=== PATIENT | male | born 1985 | race Caucasian/White ===

== ENCOUNTER → 2018-02-11 | Outpatient (CLI) | payer OTHER ==
[~2018-02-11] MED LIST: BUSP10 PO; Bactrim 400-801 EACH PO; CLIN150 PO; CLOBETTC TP; CLON.1; CLON.2; CYCL10 PO; Cipro500 MG PO; HYDACE5 PO; HYDMOR2 PO; Multi-Day Vita1 EACH PO; OXYC5 PO; PANT20; PANT40; PARO10; PARO20 PO; PARO25; PRILOSEC; SULTRIDS PO; TOPI25; TRAM50 PO; Vibramycin100 MG PO
[2018-02-11 10:48] LABS: U Barbituate Screen Not Detected; U Benzodiazapine Screen Not Detected; U Cannabinoids Screen DETECTED; U Cocaine Screen Not Detected; U Methadone Screen DETECTED; U Methamphetamine Screen Not Detected; U Opiates Screen Not Detected; U Phencyclidine Screen Not Detected
[2018-02-11 10:49] LABS: U Buprenorphine Screen Not Detected; U Oxycodone Screen Not Detected; U Propoxyphene Screen Not Detected
[2018-02-11 10:52] LABS: U Amphetamine Screen Not Detected
== END ==
LOC: LAB SHORT 08:20 → LAB 08:20
PROVIDERS: Psychiatry & Neurology Psychiatry
DX: Z51.81 Encounter for therapeutic drug level monitoring (principal); Z79.899 Other long term (current) drug therapy

== ENCOUNTER 2018-07-02 18:47 | Emergency (ER) | payer OTHER ==
[~2018-07-02] VITALS: Ht 170.2 cm; Wt 88.5 kg
[2018-07-02] MEDS ORDERED: METH40 PO (18:57)
== END 2018-07-02 19:56 | disposition home or self-care (01) ==
LOC: ER 18:47
DX: S61.412A Laceration without foreign body of left hand, initial encounter (principal); W26.0XXA Contact with knife, initial encounter; Z88.1 Allergy status to other antibiotic agents; Z88.8 Allergy status to other drugs, medicaments and biological substances; Z79.899 Other long term (current) drug therapy; F17.210 Nicotine dependence, cigarettes, uncomplicated
CPT/HCPCS: 12002; 99282-25

== ENCOUNTER 2019-05-18 17:42 | Emergency (ER) | payer OTHER ==
[~2019-05-18] VITALS: Ht 170.2 cm; Wt 93.0 kg
[~2019-05-18 17:42] MED LIST changes: +METH40 PO
== END 2019-05-18 19:54 | disposition home or self-care (01) ==
LOC: ER 17:42
DX: S61.211A Laceration without foreign body of left index finger without damage to nail, initial encounter (principal); F17.210 Nicotine dependence, cigarettes, uncomplicated; Z22.322 Carrier or suspected carrier of Methicillin resistant Staphylococcus aureus; Z88.1 Allergy status to other antibiotic agents; Z88.8 Allergy status to other drugs, medicaments and biological substances; Z79.899 Other long term (current) drug therapy; Z79.891 Long term (current) use of opiate analgesic; W25.XXXA Contact with sharp glass, initial encounter
CPT/HCPCS: 12001; 73120; 99282-25

== ENCOUNTER → 2019-07-13 | Outpatient (CLI) | payer OTHER ==
[2019-07-13 20:11] LABS: U Amphetamine Screen DETECTED; U Barbituate Screen Not Detected; U Benzodiazapine Screen Not Detected; U Buprenorphine Screen Not Detected; U Cannabinoids Screen DETECTED; U Cocaine Screen Not Detected; U Methadone Screen DETECTED; U Methamphetamine Screen Not Detected; U Opiates Screen Not Detected; U Oxycodone Screen Not Detected; U Phencyclidine Screen Not Detected; U Propoxyphene Screen Not Detected
== END | disposition home or self-care (01) ==
LOC: LAB 14:15 → LAB SHORT 14:15
PROVIDERS: Psychiatry & Neurology Psychiatry
DX: Z51.81 Encounter for therapeutic drug level monitoring (principal); Z79.899 Other long term (current) drug therapy

== ENCOUNTER → 2019-08-04 | Outpatient (CLI) | payer OTHER | LOC: LAB 12:17 → LAB SHORT 12:17 | DX: L29.0 Pruritus ani (principal) | CPT/HCPCS: 87177; 87209 ==

== ENCOUNTER → 2020-06-07 | Outpatient (CLI) | payer OTHER | END | disposition home or self-care (01) | LOC: LAB 10:30 | DX: J02.9 Acute pharyngitis, unspecified (principal) | CPT/HCPCS: 87070; 87077; 87147; 87186 ==

== ENCOUNTER 2021-05-06 17:26 | Emergency (ER) | payer OTHER ==
[~2021-05-06] VITALS: Ht 170.2 cm; Wt 95.2 kg
== END 2021-05-06 19:37 | disposition home or self-care (01) ==
LOC: ER 17:26
DX: S83.411A Sprain of medial collateral ligament of right knee, initial encounter (principal); F17.210 Nicotine dependence, cigarettes, uncomplicated; Z88.1 Allergy status to other antibiotic agents; Z88.8 Allergy status to other drugs, medicaments and biological substances; Z79.899 Other long term (current) drug therapy; W19.XXXA Unspecified fall, initial encounter
CPT/HCPCS: 29505; 73562-RT; 96372; 99283-25; J1885

== ENCOUNTER 2022-02-03 07:49 | Day surgery (SDC) | payer OTHER ==
[~2022-02-03] VITALS: Ht 170.2 cm; Wt 102.7 kg
[2022-02-03] MEDS ORDERED: CLOMIPRAMINE HC25 M1 (08:34)
[2022-02-03] MEDS ORDERED: Vyvanse70 MG PO (08:35)
[2022-02-03] MEDS ORDERED: HYDPAM50 PO (08:35)
[2022-02-03] MEDS ORDERED: IBUP800 PO (08:36)
--- NOTE | 2022-02-03 08:45 | NUR ---
02/03/22 0845 Paco Varner CALL LIGHT WITHIN REACH
--- NOTE | 2022-02-03 09:57 | NUR ---
02/03/22 0957 Liam Wolfe 1 MG EPI ADDED TO EACH OF THE FIRST 3 BAGS OF LR PER ORDER FOR IRRIGATION.
--- NOTE | 2022-02-03 13:06 | NUR ---
02/03/22 1306 Kindra Alejandra PT MOTHER ARRIVES AND PT COMPLAINS OF 8/10 PAIN DUE TO THE HYPEREXTENSION OF THE RIGHT KNEE BRACE. I EXPLAIN THAT DR MCLEAN HAS THE BRACE LOCKED OUT LIKE THAT DELIBERATELY, PT UNDERSTANDS. DURING THIS TIME PT DESATURATES TO 77% AND IS ENCOURAGED TO COUGH AND DEEP BREATH, O2 SAT SLOWLY RETURNS TO THE 90'S. I ENCOURAGE HIS MOTHER TO REMID HIM TO DEEP BREATH ALSO. WE TALKED ABOUT KEEPING HIS O2SATS UP BEFORE IV PAIN MEDICATIONS, PT AND MOTHER AGREE TO WAIT.
== END 2022-02-03 14:42 | disposition home or self-care (01) ==
LOC: ORSCSDS 07:49
PROVIDERS: Orthopaedic Surgery
PROC: 0SBC4ZZ Excision of Right Knee Joint, Percutaneous Endoscopic Approach (ICD-10-PCS; principal; 2022-02-03 09:00)
PROC: 0MRN47Z Replacement of Right Knee Bursa and Ligament with Autologous Tissue Substitute, Percutaneous Endoscopic Approach (ICD-10-PCS; principal; 2022-02-03 09:00)
DX: S83.511A Sprain of anterior cruciate ligament of right knee, initial encounter (principal); S83.241A Other tear of medial meniscus, current injury, right knee, initial encounter; S83.281A Other tear of lateral meniscus, current injury, right knee, initial encounter; M94.261 Chondromalacia, right knee; Z79.899 Other long term (current) drug therapy; E66.9 Obesity, unspecified; Z68.35 Body mass index [BMI] 35.0-35.9, adult; Z87.891 Personal history of nicotine dependence
CPT/HCPCS: A9270; C1713; C1762; C1776; J0171; J1100; J2250; J2405; J2704; J3010; J7120

== ENCOUNTER → 2024-02-02 | Outpatient (CLI) | payer OTHER ==
[~2024-02-02] MED LIST changes: +CLOMIPRAMINE HC25 M1; +HYDPAM50 PO; +IBUP800 PO; +Vyvanse70 MG PO
== END | disposition home or self-care (01) ==
LOC: LAB 12:00 → LAB SHORT 12:00
DX: B35.6 Tinea cruris (principal)
CPT/HCPCS: 87070; 87205